=== PATIENT | male | born 1970 | race African-American/Black ===

== ENCOUNTER 2022-02-07 14:32 | Emergency (ER) | payer MEDICAID, OTHER ==
[~2022-02-07] VITALS: Ht 175.3 cm; Wt 84.0 kg
[2022-02-07 15:06] VITALS: BP 134/95
[2022-02-07] MEDS ORDERED: MAGNESIUM/ALUMINUM HYDROXIDE/SIMETHICONE 30ML UDC PO STA (15:30)
[2022-02-07 16:12] LABS: BASOPHILS % 0.6 % (0.0-2.0); EOSINOPHILS % 0.3 % (0.0-5.0); HEMATOCRIT. 38.9 % (42.0-52.0); HEMOGLOBIN. 13.3 g/dL (14.0-18.0); LYMPHOCYTES % 11.7 % (20.0-50.0); MEAN CORPUSCULAR HEMOGLOBIN 33.3 pg (28.0-32.0); MEAN CORPUSCULAR VOLUME 97.7 fL (80.0-94.0); MONOCYTES % 7.6 % (2.0-8.0); NEUTROPHILS % 79.8 % (40.0-76.0); PLATELET 201 x1000/uL (130-400); RED BLOOD CELL COUNT 3.98 mill/uL (4.7-6.1); RED CELL DISTRIBUTION WIDTH 14.2 % (11.6-14.6)
[2022-02-07 16:14] LABS: CHLORIDE 101 mEq/L (98-107)
[2022-02-07 16:21] LABS: ETHANOL BLOOD < 10 mg/dL
[2022-02-07] MEDS ORDERED: MAGNESIUM/ALUMINUM HYDROXIDE/SIMETHICONE 30ML UDC PO NR (17:00)
[2022-02-07] MEDS ORDERED: ONDANSETRON 4MG ODT PO STA (17:18)
[2022-02-07] MEDS ORDERED: ONDA4TAB50 MT (19:02)
[2022-02-07] MEDS ORDERED: OMEP40CA20 MT (19:02)
[2022-02-07] MEDS ORDERED: DOXY100C5 MT (19:03)
== END 2022-02-07 20:14 | disposition home or self-care (01) ==
LOC: ER 14:32
DX: R10.13 Epigastric pain (principal); R11.2 Nausea with vomiting, unspecified
CPT/HCPCS: 36415; 74176; 80053; 80320; 83690; 85025; 99284; Q0162; G0480

== ENCOUNTER 2022-02-08 03:41 | Inpatient (IN) | payer OTHER ==
[~2022-02-08] VITALS: Ht 172.7 cm; Wt 85.3 kg
[~2022-02-08 03:41] MED LIST: DOXY100C5 MT; OMEP40CA20 MT; ONDA4TAB50 MT
[2022-02-08 05:11] LABS: HEMATOCRIT. 37.8 % (42.0-52.0); HEMOGLOBIN. 13.1 g/dL (14.0-18.0); MEAN CORPUSCULAR HEMOGLOBIN 34.1 pg (28.0-32.0); MEAN CORPUSCULAR VOLUME 98.5 fL (80.0-94.0); MEAN PLATELET VOLUME 9.3 fl (7.4-10.4); PLATELET 191 x1000/uL (130-400); RED BLOOD CELL COUNT 3.84 mill/uL (4.7-6.1); RED CELL DISTRIBUTION WIDTH 14.1 % (11.6-14.6)
[2022-02-08 05:23] LABS: CHLORIDE 99 mEq/L (98-107)
[2022-02-08] MEDS ORDERED: MORPHINE SULFATE 4 MG/ML CPJ (NOT FOR IM USE) IV STA (05:25)
[2022-02-08] MEDS ORDERED: ONDANSETRON HCL 4MG/2ML INJ IV STA (05:25)
[2022-02-08 05:27] LABS: INR 0.9; PARTIAL THROMBOPLASTIN TIME 27.9 sec (23.4-31.0); PROTHROMBIN TIME 10.1 sec (9.6-11.0)
[2022-02-08] MEDS ORDERED: NITROGLYCERIN OINT 1GM/INCH UDPKT TD ONE (05:30)
[2022-02-08] MEDS ORDERED: ASPIRIN 81MG TABLET PO ONE (05:30)
[2022-02-08 05:48] LABS: *AMPHETAMINES SCREEN URINE NEGATIVE (NEGATIVE); *BARBITURATES SCREEN URINE NEGATIVE (NEGATIVE); *BENZODIAZEPINES SCREEN URINE NEGATIVE (NEGATIVE); *COCAINE SCREEN URINE NEGATIVE (NEGATIVE); CANNABINOID URINE SCREEN NEGATIVE (NEGATIVE); METHADONE URINE SCREEN NEGATIVE (NEGATIVE); OPIATES URINE SCREEN NEGATIVE (NEGATIVE); PHENCYCLIDINE URINE SCREEN NEGATIVE (NEGATIVE)
[2022-02-08 06:00] LABS: ETHANOL BLOOD < 10 mg/dL
[2022-02-08 07:31] LABS: PLATELET ESTIMATE NORMAL
[2022-02-08] MEDS ORDERED: ONDANSETRON HCL 4MG/2ML INJ IV PRN (09:00)
[2022-02-08] MEDS: ACETAMINOPHEN 325MG TABLET PO PRN (14:18)
[2022-02-08 17:52] LABS: CLARITY URINE CLEAR (CLEAR); COLOR URINE YELLOW (YELLOW); KETONES URINE TRACE (NEGATIVE); LEUKOCYTE ESTERASE URINE 1+ (NEGATIVE); NITRITE URINE NEGATIVE (NEGATIVE); OCCULT BLOOD URINE NEGATIVE (NEGATIVE); PROTEIN URINE 1+ (NEGATIVE); SPECIFIC GRAVITY URINE 1.014 (1.005-1.030)
[2022-02-09] MEDS: ACETAMINOPHEN 325MG TABLET PO PRN ×2 (03:11→15:31)
[2022-02-09 03:44] VITALS: BP 131/94
[2022-02-09 08:00] VITALS: BP 126/85
[2022-02-09] MEDS: ASPIRIN 81MG TABLET PO SCH (08:24)
[2022-02-09] MEDS ORDERED: ASPIRIN 81MG TABLET PO SCH (09:00)
[2022-02-09 12:00] VITALS: BP 133/88
[2022-02-09 16:00] VITALS: BP 123/86
[2022-02-09 20:00] VITALS: BP 126/80
[2022-02-10] VITALS: BP 124/78
[2022-02-10 04:00] VITALS: BP 138/81
[2022-02-10 08:00] VITALS: BP 138/89
[2022-02-10] MEDS: ASPIRIN 81MG TABLET PO SCH (10:41)
[2022-02-10 11:50] VITALS: BP 125/80
[2022-02-10 12:00] VITALS: BP 111/78
== END 2022-02-10 12:50 | disposition home or self-care (01) | DRG 203 ==
LOC: ER 03:41 → MICUSO 08:32 → EDBEDREQ 08:35 → 8WST 22:50
PROVIDERS: ADMIT Internal Medicine; ATTEND Internal Medicine
DX: M94.0 Chondrocostal junction syndrome [Tietze] (principal); E44.1 Mild protein-calorie malnutrition; E87.1 Hypo-osmolality and hyponatremia; D72.825 Bandemia; E78.00 Pure hypercholesterolemia, unspecified; Z20.822 Contact with and (suspected) exposure to COVID-19; F41.9 Anxiety disorder, unspecified; I10 Essential (primary) hypertension; Z82.49 Family history of ischemic heart disease and other diseases of the circulatory system; Z68.28 Body mass index [BMI] 28.0-28.9, adult
CPT/HCPCS: 36415; 71045; 80053; 80305; 80320; 81003; 83880; 84145; 84484; 85025; 87426; 93005; 99285; J2270; J2405; G0480

== ENCOUNTER 2022-07-21 20:59 | Inpatient (IN) | payer MEDICAID, OTHER ==
[~2022-07-21] VITALS: Ht 188 cm; Wt 86.2 kg
[2022-07-21] MEDS ORDERED: SODIUM CHLORIDE 0.9% 1,000 ML IV ONE ×2 (23:00)
[2022-07-21] MEDS ORDERED: ONDANSETRON HCL 4MG/2ML INJ IV STA (23:00)
[2022-07-21] MEDS ORDERED: FENTANYL CITRATE/PF 50MCG/ML 2ML VIAL IV ONE (23:00)
[2022-07-21] MEDS ORDERED: FOLIC ACID 1 MG, THIAMINE HCL 100 MG, MVI, ADULT NO.1 10 ML in DEXTROSE 5% WATER 1,000 ML IV ONE ×4 (23:00)
[2022-07-21] MEDS ORDERED: MAGNESIUM 2 G PREMIX 50 ML IV ONE (23:15)
[2022-07-21 23:28] LABS: CHLORIDE 98 mEq/L (98-107)
[2022-07-21 23:30] LABS: BASOPHILS % 0.4 % (0.0-2.0); EOSINOPHILS % 0.1 % (0.0-5.0); HEMATOCRIT. 40.7 % (42.0-52.0); HEMOGLOBIN. 13.2 g/dL (14.0-18.0); LYMPHOCYTES % 12.7 % (20.0-50.0); MEAN CORPUSCULAR VOLUME 104.5 fL (80.0-94.0); MEAN PLATELET VOLUME 9.5 fl (7.4-10.4); MONOCYTES % 8.7 % (2.0-8.0); NEUTROPHILS % 78.1 % (40.0-76.0); PLATELET 280 x1000/uL (130-400); RED BLOOD CELL COUNT 3.89 mill/uL (4.7-6.1); RED CELL DISTRIBUTION WIDTH 14.5 % (11.6-14.6)
[2022-07-21 23:36] LABS: ETHANOL BLOOD < 10 mg/dL (-10)
[2022-07-21 23:58] LABS: CLARITY URINE CLEAR (CLEAR); COLOR URINE YELLOW (YELLOW); KETONES URINE 1+ (NEGATIVE); LEUKOCYTE ESTERASE URINE TRACE (NEGATIVE); NITRITE URINE NEGATIVE (NEGATIVE); OCCULT BLOOD URINE NEGATIVE (NEGATIVE); PH URINE 6.5 (4.5-8.0); PROTEIN URINE 2+ (NEGATIVE); SPECIFIC GRAVITY URINE 1.016 (1.005-1.030)
[2022-07-22 00:39] LABS: *AMPHETAMINES SCREEN URINE NEGATIVE (NEGATIVE); *BARBITURATES SCREEN URINE NEGATIVE (NEGATIVE); *BENZODIAZEPINES SCREEN URINE NEGATIVE (NEGATIVE); *COCAINE SCREEN URINE NEGATIVE (NEGATIVE); CANNABINOID URINE SCREEN PRESUMTIVE POSITIVE (NEGATIVE); METHADONE URINE SCREEN NEGATIVE (NEGATIVE); OPIATES URINE SCREEN NEGATIVE (NEGATIVE); PHENCYCLIDINE URINE SCREEN NEGATIVE (NEGATIVE)
[2022-07-22] MEDS ORDERED: IOHEXOL-300 100 ML BOTTLE ONE (01:58)
[2022-07-22] MEDS ORDERED: LEVETIRACETAM 500MG PREMIX 100 ML IV ONE (02:45)
[2022-07-22] MEDS ORDERED: LEVETIRACETAM 500MG PREMIX 100 ML IV NR (05:30)
[2022-07-22 09:00] VITALS: BP 144/78
[2022-07-22 10:01] VITALS: BP 144/78
[2022-07-22] MEDS ORDERED: ONDANSETRON HCL 4MG/2ML INJ IV PRN (10:30)
[2022-07-22] MEDS ORDERED: POTASSIUM CHLORIDE 20MEQ TABLET SR PO NR (10:30)
[2022-07-22] MEDS ORDERED: ACETAMINOPHEN 325MG TABLET PO PRN (10:30)
[2022-07-22] MEDS ORDERED: LORAZEPAM 2MG/ML CPJ IV PRN (12:45)
[2022-07-22] MEDS ORDERED: NALOXONE HCL 0.4MG/ML VIAL IV PRN (13:00)
[2022-07-22] MEDS: LACTULOSE 20G/30ML UDC PO SCH ×2 (13:29→21:44)
[2022-07-22] MEDS ORDERED: LACTULOSE 20G/30ML UDC PO SCH (14:00)
[2022-07-22] MEDS ORDERED: FOLIC ACID 1 MG, THIAMINE HCL 100 MG, MVI, ADULT NO.1 10 ML in DEXTROSE 5% WATER 1,000 ML IV NR ×4 (14:00)
[2022-07-22 14:05] LABS: BASOPHILS % 0.4 % (0.0-2.0); EOSINOPHILS % 0.2 % (0.0-5.0); HEMATOCRIT. 35.9 % (42.0-52.0); HEMOGLOBIN. 12.3 g/dL (14.0-18.0); LYMPHOCYTES % 11.6 % (20.0-50.0); MEAN CORPUSCULAR HEMOGLOBIN 34.2 pg (28.0-32.0); MEAN CORPUSCULAR VOLUME 99.4 fL (80.0-94.0); MEAN PLATELET VOLUME 9.5 fl (7.4-10.4); NEUTROPHILS % 79.8 % (40.0-76.0); PLATELET 242 x1000/uL (130-400); RED BLOOD CELL COUNT 3.61 mill/uL (4.7-6.1); RED CELL DISTRIBUTION WIDTH 14.2 % (11.6-14.6)
[2022-07-22 14:14] LABS: INR 0.9; PROTHROMBIN TIME 9.9 sec (9.6-11.0)
[2022-07-22 14:20] LABS: CHLORIDE 102 mEq/L (98-107)
[2022-07-22 15:05] LABS: HEPATITIS B SURFACE ANTIGEN NEGATIVE
[2022-07-22 16:00] VITALS: BP 132/85
[2022-07-22 21:43] VITALS: BP 175/88
[2022-07-22] MEDS: RIFAXIMIN 550 MG TABLET PO SCH (21:50)
[2022-07-22] MEDS: LEVETIRACETAM 500MG TABLET PO SCH (21:50)
[2022-07-23] VITALS: BP 133/80
[2022-07-23] MEDS: HYDROCODONE/ACETAMINOPHEN 5/325MG TABLET PO PRN ×4 (02:08→16:01)
[2022-07-23 05:52] LABS: INR 0.9; PROTHROMBIN TIME 9.8 sec (9.6-11.0)
[2022-07-23] MEDS: LACTULOSE 20G/30ML UDC PO SCH (06:00)
[2022-07-23 06:21] LABS: BASOPHILS % 0.2 % (0.0-2.0); EOSINOPHILS % 0.5 % (0.0-5.0); HEMATOCRIT. 34.2 % (42.0-52.0); HEMOGLOBIN. 11.8 g/dL (14.0-18.0); LYMPHOCYTES % 12.3 % (20.0-50.0); MEAN CORPUSCULAR HEMOGLOBIN 34.5 pg (28.0-32.0); MEAN CORPUSCULAR VOLUME 99.9 fL (80.0-94.0); MONOCYTES % 8.6 % (2.0-8.0); NEUTROPHILS % 78.4 % (40.0-76.0); PLATELET 217 x1000/uL (130-400); RED BLOOD CELL COUNT 3.42 mill/uL (4.7-6.1); RED CELL DISTRIBUTION WIDTH 13.9 % (11.6-14.6)
[2022-07-23 09:14] LABS: CHLORIDE 102 mEq/L (98-107)
[2022-07-23] MEDS: LEVETIRACETAM 500MG TABLET PO SCH (10:02)
[2022-07-23] MEDS: RIFAXIMIN 550 MG TABLET PO SCH (10:02)
[2022-07-23] MEDS ORDERED: KEPP500 PO (10:24)
[2022-07-23] MEDS ORDERED: FOLI-43 MT (10:24)
[2022-07-23] MEDS ORDERED: AMLO10TA80 MT (10:24)
[2022-07-23] MEDS ORDERED: IBUP-2029 MT (10:24)
[2022-07-23 10:37] VITALS: BP 93/53
[2022-07-23 10:41] VITALS: BP 107/78
[2022-07-23 12:07] VITALS: BP 110/63
[2022-07-23 16:00] VITALS: BP 110/63
[2022-07-23 16:20] VITALS: BP 120/79
[2022-07-23] MEDS ORDERED: GUAIFENESIN 600MG ER TABLET PO SCH (21:00)
== END 2022-07-23 19:47 | disposition home or self-care (01) | DRG 342 ==
LOC: ER 20:59 → 3WST 07-22 02:32 → EDBEDREQ 07-22 02:51
PROVIDERS: ADMIT Internal Medicine; ATTEND Internal Medicine
DX: S42.202A Unspecified fracture of upper end of left humerus, initial encounter for closed fracture (principal); K76.82 Hepatic encephalopathy; E72.20 Disorder of urea cycle metabolism, unspecified; E87.1 Hypo-osmolality and hyponatremia; K76.0 Fatty (change of) liver, not elsewhere classified; G40.909 Epilepsy, unspecified, not intractable, without status epilepticus; D64.9 Anemia, unspecified; D72.829 Elevated white blood cell count, unspecified; E78.00 Pure hypercholesterolemia, unspecified; J43.9 Emphysema, unspecified; E87.6 Hypokalemia; F17.210 Nicotine dependence, cigarettes, uncomplicated; I10 Essential (primary) hypertension; J98.11 Atelectasis; F10.10 Alcohol abuse, uncomplicated; M47.812 Spondylosis without myelopathy or radiculopathy, cervical region; R74.01 Elevation of levels of liver transaminase levels; X58.XXXA Exposure to other specified factors, initial encounter; Y93.89 Activity, other specified; Y92.89 Other specified places as the place of occurrence of the external cause; Y99.8 Other external cause status
CPT/HCPCS: 36415; 71045; 71260; 73030; 74177; 80048; 80053; 80076; 80305; 80320; 81003; 82140; 83036; 85025; 86705; 86709; 86803; 87340; 93005; 97161; 97760; 99291; A4565; J1953; J2405; J3010; J3411; J3475; J3490; J7030; J7070; Q9967; G0480